=== PATIENT | female | born 1975 | race Caucasian/White ===

== ENCOUNTER → 2023-11-20 10:22 | Outpatient (REF) | payer BC, SELFPAY | LOC: WDC 10:22 | PROVIDERS: ATTENDING PHYSICIAN Nurse Practitioner; FAMILY PHYSICIAN Internal Medicine | DX: R92.8 Other abnormal and inconclusive findings on diagnostic imaging of breast (principal) | CPT/HCPCS: 76642 ==

== ENCOUNTER → 2024-02-26 12:45 | Outpatient (REF) | payer BC, SELFPAY | LOC: RCS 12:45 | PROVIDERS: ATTENDING PHYSICIAN Nurse Practitioner | DX: F41.9 Anxiety disorder, unspecified (principal); Q21.12 Patent foramen ovale | CPT/HCPCS: 93225; 93226 ==

== ENCOUNTER → 2024-05-27 15:10 | Outpatient (REF) | payer BC, SELFPAY | LOC: WDC 15:10 | PROVIDERS: ATTENDING PHYSICIAN Nurse Practitioner | DX: R92.8 Other abnormal and inconclusive findings on diagnostic imaging of breast (principal) | CPT/HCPCS: 76642 ==

== ENCOUNTER → 2025-01-06 17:55 | Outpatient (REF) | payer BC, SELFPAY | LOC: WDC 17:55 | PROVIDERS: ATTENDING PHYSICIAN Nurse Practitioner | DX: Z12.31 Encounter for screening mammogram for malignant neoplasm of breast (principal); Z12.39 Encounter for other screening for malignant neoplasm of breast | CPT/HCPCS: 77063; 77067 ==

== ENCOUNTER → 2025-01-16 08:44 | Outpatient (REF) | payer BC, SELFPAY | LOC: WDC 08:44 | PROVIDERS: ATTENDING PHYSICIAN Nurse Practitioner | DX: R92.8 Other abnormal and inconclusive findings on diagnostic imaging of breast (principal) | CPT/HCPCS: 76642 ==

== ENCOUNTER → 2025-06-08 10:52 | Outpatient (REF) | payer BC, SELFPAY | LOC: RAD 10:52 | PROVIDERS: ATTENDING PHYSICIAN Student in an Organized Health Care Education/Training Program; FAMILY PHYSICIAN Internal Medicine | DX: R13.19 Other dysphagia (principal) | CPT/HCPCS: 74246 ==

== ENCOUNTER → 2025-06-11 08:53 | Outpatient (REF) | payer BC, SELFPAY | LOC: RST 08:53 | PROVIDERS: ATTENDING PHYSICIAN Nurse Practitioner | DX: R13.19 Other dysphagia (principal) | CPT/HCPCS: 74230; 92611 ==

== ENCOUNTER 2025-06-16 06:25 | Day surgery (SDC) | payer BC, SELFPAY | END 2025-06-16 15:24 | disposition home or self-care (01) | LOC: GI 06:25 | PROVIDERS: ATTENDING PHYSICIAN Student in an Organized Health Care Education/Training Program | DX: R07.89 Other chest pain (principal); R10.13 Epigastric pain; K31.7 Polyp of stomach and duodenum; C15.9 Malignant neoplasm of esophagus, unspecified; K20.90 Esophagitis, unspecified without bleeding; K31.89 Other diseases of stomach and duodenum; K22.2 Esophageal obstruction | CPT/HCPCS: 43249; 43239; 88305; 88313; 88341; 88342; 88360 ==

== ENCOUNTER → 2025-06-18 13:35 | Outpatient (REF) | payer BC, SELFPAY | LOC: RAD 13:35 | PROVIDERS: ATTENDING PHYSICIAN Student in an Organized Health Care Education/Training Program; FAMILY PHYSICIAN Internal Medicine | DX: C15.5 Malignant neoplasm of lower third of esophagus (principal) | CPT/HCPCS: 71260; 74177; Q9967 ==